=== PATIENT | male | born 1955 ===

== ENCOUNTER 2023-09-27 09:30 | Outpatient (CLI) | payer OTHER, SELFPAY ==
[2023-09-27 09:58] VITALS: PULSE 99; RESP 16; O2SAT 97
[2023-09-27] MEDS: albuterol 2.5 mg/3 mL Neb INHALATION (09:58)
[2023-09-27 10:03] VITALS: PULSE 97
== END 2023-09-27 09:31 | disposition home or self-care (01) ==
PROVIDERS: PCP Nurse Practitioner Family; Visit Provider Nurse Practitioner Family
DX: R06.02 Shortness of breath (principal)
CPT/HCPCS: 94060; J7613